=== PATIENT | female | born 1970 | race Caucasian/White ===

== ENCOUNTER 2017-03-30 14:34 | Emergency (ER) | payer BC ==
[~2017-03-30] VITALS: Ht 157.5 cm; Wt 61.2 kg
[2017-03-30] MEDS ORDERED: D-ME118S12 PO (14:43)
[2017-03-30] MEDS ORDERED: AZIT250T6 PO (14:43)
--- NOTE | 2017-03-30 14:57 | NUR ---
DR FRANCISCO AT THE BEDSIDE.
[2017-03-30] MEDS ORDERED: IV NORMAL SALINE 1000 ML BAG IV ONE (15:00)
[2017-03-30 15:16] LABS: BASOPHILS % (AUTO) 0.7 % (0.0-2.0); EOSINOPHILS # (AUTO) 0.2 K/uL (0.0-0.7); HEMATOCRIT 41.1 % (31.2-41.9); HEMOGLOBIN 14.3 g/dL (10.9-14.3); LYMPHOCYTES # (AUTO) 0.8 K/uL (20.0-40.0); MEAN CORPUSCULAR HEMOGLOBIN 30.3 uug (24.7-32.8); MEAN CORPUSCULAR HGB CONC 35 g/dL (32.3-35.6); MEAN CORPUSCULAR VOLUME 87.4 fL (75.5-95.3); MONOCYTES # (AUTO) 0.3 K/uL (2.0-10.0); MONOCYTES % (AUTO) 5.6 % (0.0-11.0); NEUTROPHILS # (AUTO) 4.2 K/uL (1.8-8.9); NEUTROPHILS % (AUTO) 76.7 % (38.5-71.5); PLATELET COUNT (AUTO) 109 K/uL (179-408); RED BLOOD CELL COUNT(AUTO) 4.71 MIL/uL (3.63-4.92); RED CELL DISTRIBUTION WIDTH 12.6 % (12.3-17.7); WHITE BLOOD COUNT (AUTO) 5.5 K/uL (3.8-11.8)
[2017-03-30 15:23] LABS: CALCIUM 8.8 mg/dL (8.5-10.1); CREATININE 0.9 mg/dL (0.6-1.3); POTASSIUM 3.8 mmol/L (3.5-5.1)
--- NOTE | 2017-03-30 16:17 | NUR ---
IV removed. Catheter intact and site benign. Pressure and 4x4 gauze applied to site. No bleeding noted.
[2017-03-30 16:18] VITALS: BP 122/80
--- NOTE | 2017-03-30 16:19 | NUR ---
Patient discharged to home in stable conditon. Written and verbal after care instructions given. Patient verbalizes understanding of instructions.
== END 2017-03-30 16:21 | disposition home or self-care (01) ==
LOC: ER 14:37
DX: J06.9 Acute upper respiratory infection, unspecified (principal)
CPT/HCPCS: 36415; 71010; 84703; 85025; A4663; J7030

== ENCOUNTER 2019-03-02 11:09 | Emergency (ER) | payer BC ==
[~2019-03-02] VITALS: Ht 162.6 cm; Wt 61.2 kg
[~2019-03-02 11:09] MED LIST: AZIT250T13 PO; D-ME118S12 PO
--- NOTE | 2019-03-02 11:18 | NUR ---
PT A/OX4, PRESENTS TO THE ER C/O R ARM NUMBNESS SINCE THIS AM. PT REPORTS SHE WENT TO SLEEP W/ R SHOULDER DISCOMFORT AND WOKE UP W/ A NUMBNESS RADIATING DOWN THE R ARM. PT ALSO REPORTS SHE NOTICED A LUMP ON R NECK. NO FACIAL DROOP, NO SLURRED SPEECH, NO MEMORY LOSS, NO VISION DISTURBANCE, NO ARM DRIFT, NO DIMAS-LATERAL WEAKNESS. [facility] INTACT IN THE RUE. PT DENIES C/P, SOB, N/V/D, DIZZINESS, HEADACHE. ER MD AT BEDSIDE FOR MSE.
[2019-03-02] MEDS ORDERED: KETOROLAC TROMETHAMINE 60 MG INJ IM ONE ×2 (11:27→11:30)
--- NOTE | 2019-03-02 12:29 | NUR ---
REMIGIO BECKMAN AT BEDSIDE FOR PT UPDATE.
--- NOTE | 2019-03-02 12:44 | NUR ---
Patient discharged to home in stable conditon. Written and verbal after care instructions given. Patient verbalizes understanding of instructions. ALL BELONGINGS W/ PT. PT SELF-AMBULATED W/O DIFFICULTY.
[2019-03-02 12:45] VITALS: BP 114/63
== END 2019-03-02 12:46 | disposition home or self-care (01) ==
LOC: ER 11:09
DX: M54.12 Radiculopathy, cervical region (principal); Z79.2 Long term (current) use of antibiotics; Z79.899 Other long term (current) drug therapy; M25.511 Pain in right shoulder; M79.601 Pain in right arm
CPT/HCPCS: 72040; 73030; 96372; 99283; J1885

== ENCOUNTER 2021-10-14 07:29 | Emergency (ER) | payer BC, MEDICAID ==
[~2021-10-14] VITALS: Ht 157.5 cm; Wt 59.0 kg
[~2021-10-14 07:29] MED LIST changes: -D-ME118S12 PO; +PROM118S5 PO
[2021-10-14] MEDS ORDERED: IV NORMAL SALINE 1000 ML BAG IV ONE (07:45)
[2021-10-14] MEDS ORDERED: ONDANSETRON 4 MG/2 ML VIAL IV ONE (07:45)
[2021-10-14] MEDS ORDERED: FAMOTIDINE. 20 MG/2 ML VIAL IV ONE ×2 (07:45→08:00)
[2021-10-14] MEDS ORDERED: ONDANSETRON 4 MG/2 ML VIAL ONE (08:00)
[2021-10-14 08:03] LABS: HEMATOCRIT 42.9 % (31.2-41.9); MEAN CORPUSCULAR VOLUME 88.3 fL (75.5-95.3); PLATELET COUNT (AUTO) 96 K/uL (179-408)
[2021-10-14 08:11] LABS: CREATININE 0.9 mg/dL (0.6-1.3); POTASSIUM 3.6 mmol/L (3.5-5.1)
[2021-10-14 08:12] LABS: *BILIRUBIN,URIN 1+ (NEGATIVE); *BLOOD, URINE 2+ (NEGATIVE); *CLARITY,URINE CLEAR (CLEAR); *COLOR,URINE YELLOW (YELLOW); *KETONES,URINE 4+ (NEGATIVE); *URINE HCG, QUAL NEG (NEGATIVE); *UROBILINOGEN,URINE 0.2 E.U./dl (NORMAL); LEUKOCYTE ESTERASE ,URINE NEGATIVE (NEGATIVE); NITRITE, URINE NEGATIVE (NEGATIVE); UGLUCOSE NEGATIVE (NEGATIVE)
[2021-10-14 08:17] LABS: BILIRUBIN,DIRECT 0.1 mg/dL (0.0-0.2); BILIRUBIN,TOTAL 0.4 mg/dL (0.2-1.0); TOTAL PROTEIN, SERUM 8.1 g/dL (6.4-8.2)
[2021-10-14] MEDS ORDERED: FAMO-132 PO (09:19)
[2021-10-14] MEDS ORDERED: ONDA4TAB5 PO (09:19)
--- NOTE | 2021-10-14 09:30 | NUR ---
pt tolerated po challenge, says feels better.
--- NOTE | 2021-10-14 09:35 | NUR ---
Patient discharged to home in stable condition. Written and verbal after care instructions given. Patient verbalizes understanding of instructions. Stressed follow up or return to ER for worsening s/s.pt walks i nsteady gait, deneis any n/v
[2021-10-14 09:47] VITALS: BP 129/77
[2021-10-14 11:43] LABS: BACTERIA,URINE FEW /HPF (NONE SEEN); SQUAMOUS EPITHELIAL CELL,UR FEW /HPF (NONE SEEN); WBC,URINE 0-3 /HPF (0-3)
== END 2021-10-14 09:35 | disposition home or self-care (01) ==
LOC: ER 07:29
DX: R11.2 Nausea with vomiting, unspecified (principal); R94.31 Abnormal electrocardiogram [ECG] [EKG]
CPT/HCPCS: 36415; 80048; 80076; 81001; 83690; 84484; 84703; 85025; 93005; 96374; 96375; 99284; J2405; J3490; 70030-TC; A4663; J7030

== ENCOUNTER 2022-12-27 18:02 | Emergency (ER) | payer MEDICAID ==
[~2022-12-27] VITALS: Ht 157.5 cm; Wt 61.2 kg
[~2022-12-27 18:02] MED LIST changes: +FAMO-132 PO; +ONDA4TAB5 PO
--- NOTE | 2022-12-27 18:24 | NUR ---
PT IS IN ROOM #2A. DR SANTOS EVALUATED THE PT.
[2022-12-27] MEDS ORDERED: HYDROMORPHONE 1 MG/1 ML DISP.SYRIN ONE (18:38)
[2022-12-27] MEDS ORDERED: ONDANSETRON 4 MG/2 ML VIAL ONE (18:39)
[2022-12-27] MEDS ORDERED: ONDANSETRON 4 MG/2 ML VIAL IV ONE (18:45)
[2022-12-27] MEDS ORDERED: HYDROMORPHONE 1 MG/1 ML DISP.SYRIN IV ONE (18:45)
--- NOTE | 2022-12-27 19:07 | NUR ---
Patient back from CT.
--- NOTE | 2022-12-27 19:20 | NUR ---
Patient was placed in orthopedic right thumb splint.
[2022-12-27 19:25] LABS: MEAN CORPUSCULAR HEMOGLOBIN 30.3 uug (24.7-32.8); MEAN CORPUSCULAR VOLUME 89.6 fL (75.5-95.3); PLATELET COUNT (AUTO) 162 K/uL (179-408)
[2022-12-27 19:32] LABS: BILIRUBIN,DIRECT 0.1 mg/dL (0.0-0.2); BILIRUBIN,TOTAL 0.5 mg/dL (0.2-1.0); CREATININE 1.2 mg/dL (0.6-1.3); POTASSIUM 3.7 mmol/L (3.5-5.1); TOTAL PROTEIN, SERUM 7.7 g/dL (6.4-8.2)
[2022-12-27] MEDS ORDERED: ONDA4TAB5 PO (19:58)
[2022-12-27] MEDS ORDERED: HYDR-4209 PO (19:58)
--- NOTE | 2022-12-27 20:10 | NUR ---
Patient discharged to home in stable condition. Written and verbal after care instructions given. Patient verbalizes understanding of instructions. Stressed follow up or return to ER for worsening s/s.
[2022-12-27 20:11] VITALS: BP 100/75
== END 2022-12-27 20:12 | disposition home or self-care (01) ==
LOC: ER 18:02
DX: S22.089A Unspecified fracture of T11-T12 vertebra, initial encounter for closed fracture (principal); S63.501A Unspecified sprain of right wrist, initial encounter; W01.0XXA Fall on same level from slipping, tripping and stumbling without subsequent striking against object, initial encounter; Y93.51 Activity, roller skating (inline) and skateboarding; Y92.89 Other specified places as the place of occurrence of the external cause; M54.12 Radiculopathy, cervical region
CPT/HCPCS: 99285; 72131; 96374; 96375; 80076; 80048; 83690; 85025; 36415; 73110; 74176; 29125; J2405; J1170; A4663